=== PATIENT | female | born 1975 | race Caucasian/White ===

== ENCOUNTER 2018-11-08 14:58 | Emergency (ER) | payer SELFPAY ==
--- NOTE | 2018-11-08 16:17 | CT ---
CT chest with IV contrast CT abdomen and pelvis with IV contrast CT thoracic spine noncontrast CT lumbar spine noncontrast HISTORY: Chest pain. Dyspnea. Recent blunt trauma to chest. Back pain and abdomen pain. FINDINGS: Mildly displaced fractures involve the anterolateral aspects of left ribs 5, 6, 7, and 8. N o pneumothorax. Small amount of associated chest wall gas. Mild emphysematous changes at the lung apices. Minimal scarring at the bases. No pleural fluid or med iastinal adenopathy. Lobular subtle low-density lesion within the medial segment left liver lobe shows suggestion of peripheral enhancement. While it is nonspecific, hemangioma is most likely. 2.7 c m dominant follicle is apparent at the right ovary. No free air or free fluid in the abdomen/pelvis. Vertebral body heights and alignment of the thoracolumbar spine are maintained. Mild osteophytosis. IMPRESSION: Left anterolateral mid rib fractures. No evidence of pneumothorax.
[2018-11-08] MEDS ORDERED: predniSONE 20 MG TAB ONE (16:20)
[2018-11-08] MEDS ORDERED: Ketorolac Tromethamine 30 MG/ML VIAL ONE (16:20)
== END 2018-11-08 16:30 | disposition home or self-care (01) ==
LOC: ERS 14:58
DX: S27.321A Contusion of lung, unilateral, initial encounter (principal); S22.32XA Fracture of one rib, left side, initial encounter for closed fracture; G40.909 Epilepsy, unspecified, not intractable, without status epilepticus; F17.210 Nicotine dependence, cigarettes, uncomplicated; X58.XXXA Exposure to other specified factors, initial encounter
CPT/HCPCS: 71260; 74177; 94640; 96374; J1885; J7512; J7620